=== PATIENT | male | born 1950 | race African-American/Black ===

== ENCOUNTER 2019-09-09 07:21 | Emergency (ER) | payer MEDICARE, OTHER ==
[~2019-09-09] VITALS: Ht 172.7 cm; Wt 73.2 kg
[~2019-09-09 07:21] MED LIST: ASPI-1182 PO; ATEN25TA PO; HYDR25TA PO; IBUP-2070 PO; LISI-662 PO; METF500T20 PO; SIMV-260 PO
[2019-09-09 07:22] VITALS: BP 128/68
[2019-09-09] MEDS ORDERED: ROSU20TA23 PO (07:33)
[2019-09-09 07:38] LABS: GLUCOSE,POINT OF CARE 125 MG/DL (70-110)
[2019-09-09] MEDS ORDERED: PROPARACAINE HCL 0.5% 15 ML OPHTHALMIC SOLUTION OU ONE (08:00)
[2019-09-09] MEDS ORDERED: FLUORESCEIN SODIUM 1 MG STRIP ONE (08:09)
[2019-09-09] MEDS ORDERED: TIMOLOL MALEATE 0.5% 5 ML OPHTHALMIC SOLUTION OD ONE (08:45)
[2019-09-09] MEDS ORDERED: TIMOLOL MALEATE 0.25% 5 ML OPHTHALMIC SOLUTION OD ONE (08:45)
== END 2019-09-09 09:15 | disposition home or self-care (01) ==
LOC: EMS 07:27
DX: E11.39 Type 2 diabetes mellitus with other diabetic ophthalmic complication (principal); H40.9 Unspecified glaucoma; E78.00 Pure hypercholesterolemia, unspecified; I10 Essential (primary) hypertension; E11.36 Type 2 diabetes mellitus with diabetic cataract; Z98.890 Other specified postprocedural states; Z79.899 Other long term (current) drug therapy

== ENCOUNTER 2023-08-18 05:32 | Emergency (ER) | payer MEDICARE, OTHER ==
[~2023-08-18] VITALS: Ht 172.7 cm; Wt 86.4 kg
[~2023-08-18 05:32] MED LIST changes: -ASPI-1182 PO; +ASPI-1444 PO; -ATEN25TA PO; -HYDR25TA PO; +HYDR25TA2 PO; -IBUP-2070 PO; -LISI-662 PO; +LISI-894 PO; +METF-81 PO; -METF500T20 PO; +ROSU20TA73 PO; -SIMV-260 PO
[2023-08-18 05:36] VITALS: BP 140/76; PULSE 61; RESP 13; TEMP 97.9
[2023-08-18] MEDS ORDERED: METO-558 PO (05:51)
[2023-08-18] MEDS ORDERED: BACI28.410 TP ×2 (06:27→06:51)
== END 2023-08-18 07:38 | disposition home or self-care (01) ==
LOC: EMS 05:34
DX: R23.8 Other skin changes (principal); E11.9 Type 2 diabetes mellitus without complications; E78.00 Pure hypercholesterolemia, unspecified; I10 Essential (primary) hypertension; Z98.890 Other specified postprocedural states
CPT/HCPCS: 99282; Z7502

== ENCOUNTER 2024-06-14 17:03 | Emergency (ER) | payer MEDICARE, OTHER ==
[~2024-06-14] VITALS: Ht 175.3 cm; Wt 83.6 kg
[~2024-06-14 17:03] MED LIST changes: +BACI28.410 TP; +METO-325 PO
[2024-06-14 17:08] VITALS: BP 131/72; PULSE 98; RESP 19; TEMP 98
[2024-06-14] MEDS ORDERED: LOSA-381 PO (17:10)
[2024-06-14] MEDS ORDERED: LOSA-382 PO (17:10)
[2024-06-14] MEDS ORDERED: EMPA1TAB11 PO (17:10)
[2024-06-14] MEDS ORDERED: METO-408 PO (17:10)
[2024-06-14] MEDS ORDERED: HYDR25TA PO (17:10)
[2024-06-14] MEDS ORDERED: LISI40TA9 PO (17:10)
[2024-06-14] MEDS ORDERED: CALC-26 PO (17:10)
[2024-06-15] MEDS ORDERED: FLUT16H NASAL (09:51)
[2024-06-15] MEDS ORDERED: ROSU20TA73 PO (09:51)
[2024-06-15] MEDS ORDERED: CLOB15OI21 TP (09:51)
== END 2024-06-14 19:28 | disposition left against medical advice (07) ==
LOC: EMS 17:03
DX: R60.0 Localized edema (principal); Z53.21 Procedure and treatment not carried out due to patient leaving prior to being seen by health care provider

== ENCOUNTER 2024-06-15 09:34 | Emergency (ER) | payer MEDICARE, OTHER ==
[~2024-06-15] VITALS: Ht 170.2 cm; Wt 83.6 kg
[~2024-06-15 09:34] MED LIST changes: +CALC-26 PO; +EMPA1TAB11 PO; +HYDR25TA PO; +LISI40TA9 PO; +LOSA-381 PO; +LOSA-382 PO; +METO-408 PO
[2024-06-15 09:46] VITALS: TEMP 97.8
[2024-06-15] MEDS ORDERED: FLUT16H NASAL (09:51)
[2024-06-15] MEDS ORDERED: CLOB15OI21 TP (09:51)
[2024-06-15] MEDS ORDERED: ROSU20TA73 PO (09:51)
[2024-06-15 12:38] VITALS: BP 137/72; PULSE 64; RESP 14
== END 2024-06-15 12:56 | disposition home or self-care (01) ==
LOC: EMS 09:46
DX: R60.0 Localized edema (principal); E11.9 Type 2 diabetes mellitus without complications; I10 Essential (primary) hypertension; Z91.010 Allergy to peanuts; Z91.018 Allergy to other foods
CPT/HCPCS: 82962; 93970; 99284; Z7502

== ENCOUNTER 2025-08-15 07:22 | Emergency (ER) | payer MEDICARE, OTHER ==
[~2025-08-15] VITALS: Ht 172.7 cm; Wt 82.0 kg
[~2025-08-15 07:22] MED LIST changes: -BACI28.410 TP; +CLOB15OI21 TP; +FLUT16H NASAL; -HYDR25TA2 PO; +LISI-1024 PO; -LISI-894 PO; -LISI40TA9 PO; -LOSA-381 PO; -LOSA-382 PO; -METF-81 PO; -METO-325 PO; -ROSU20TA73 PO; +ROSU20TA98 PO
[2025-08-15 07:35] VITALS: TEMP 97.9
[2025-08-15 07:53] VITALS: BP 152/69; PULSE 54; RESP 18; O2SAT 100
[2025-08-15 07:56] LABS: GLUCOMETER DEV NAME(LOC) ERT.7; GLUCOSE,POINT OF CARE 108 MG/DL (70-110)
[2025-08-15] MEDS ORDERED: CLOT15CR23 TP (08:05)
== END 2025-08-15 08:06 | disposition home or self-care (01) ==
LOC: EMS 07:29
DX: N47.6 Balanoposthitis (principal); E11.9 Type 2 diabetes mellitus without complications; E78.00 Pure hypercholesterolemia, unspecified; I10 Essential (primary) hypertension; Z79.82 Long term (current) use of aspirin; Z79.84 Long term (current) use of oral hypoglycemic drugs; Z79.899 Other long term (current) drug therapy; Z91.010 Allergy to peanuts; Z95.2 Presence of prosthetic heart valve; Z91.018 Allergy to other foods
CPT/HCPCS: 82962; 99282

== ENCOUNTER 2025-09-05 07:56 | Emergency (ER) | payer MEDICARE, OTHER ==
[~2025-09-05] VITALS: Ht 170.2 cm; Wt 80.9 kg
[~2025-09-05 07:56] MED LIST changes: +CLOT15CR23 TP
[2025-09-05 07:59] VITALS: TEMP 98.2
[2025-09-05 08:30] LABS: GLUCOMETER DEV NAME(LOC) ER.7; GLUCOSE,POINT OF CARE 96 MG/DL (70-110)
[2025-09-05 08:35] LABS: APPEARANCE,URINE CLEAR (CLEAR); GLUCOSE, URINE (UA) >=1000 mg/dL (NEGATIVE); LEUKOCYTE ESTERASE ,URINE NEGATIVE (NEGATIVE); NITRATE,URINE NEGATIVE (NEGATIVE); OCCULT BLOOD,URINE NEGATIVE (NEGATIVE); SPECIFIC GRAVITIY, URINE 1.030 (1.003-1.030)
[2025-09-05 11:00] VITALS: BP 121/89; PULSE 65; RESP 17; O2SAT 98
== END 2025-09-05 12:00 | disposition home or self-care (01) ==
LOC: EMS 07:56
DX: R32 Unspecified urinary incontinence (principal); E11.9 Type 2 diabetes mellitus without complications; E78.00 Pure hypercholesterolemia, unspecified; I10 Essential (primary) hypertension; Z79.82 Long term (current) use of aspirin; Z79.899 Other long term (current) drug therapy; Z95.2 Presence of prosthetic heart valve; Z91.010 Allergy to peanuts
CPT/HCPCS: 81001; 82962; 99283